=== PATIENT | female | born 1995 | race African-American/Black ===

== ENCOUNTER 2017-02-21 11:53 | Emergency (ER) | payer OTHER, MEDICAID ==
[~2017-02-21] VITALS: Ht 170.2 cm; Wt 49.0 kg
[2017-02-21] MEDS ORDERED: MORPHINE SULFATE 4 MG/ML CPJ (NOT FOR IM USE) IV STA (12:22)
[2017-02-21] MEDS ORDERED: ONDANSETRON HCL 4MG/2ML VIAL IV STA (12:22)
[2017-02-21] MEDS ORDERED: SODIUM CHLORIDE 0.9% 1,000 ML IV ONE (12:22)
[2017-02-21 12:46] LABS: BASOPHILS % 0.4 % (0.0-2.0); EOSINOPHILS % 0.7 % (0.0-5.0); HEMATOCRIT. 40.3 % (36.0-48.0); HEMOGLOBIN. 13.3 g/dL (12.0-16.0); LYMPHOCYTES % 16.9 % (20.0-50.0); MEAN CORPUSCULAR HEMOGLOBIN 26.9 pg (28.0-32.0); MEAN CORPUSCULAR HGB CONC 32.9 g/dL (31.0-37.0); MEAN CORPUSCULAR VOLUME 81.8 fL (81.0-99.0); MEAN PLATELET VOLUME 6.9 fl (7.4-10.4); MONOCYTES % 11.8 % (2.0-8.0); NEUTROPHILS % 70.2 % (40.0-76.0); PLATELET 329 x1000/uL (130-400); RED BLOOD CELL COUNT 4.93 mill/uL (4.2-5.4); RED CELL DISTRIBUTION WIDTH 14.3 % (11.6-14.6); WHITE BLOOD COUNT 8.4 x1000/uL (4.5-11.0)
[2017-02-21 12:50] LABS: CHLORIDE 106 mEq/L (98-107); INDEX HEMOLYSI 1 (1-3); INDEX ICTERIC 1 (1-4); INDEX LIPEMIC 1 (1-3)
[2017-02-21 12:58] LABS: ALANINE AMINOTRANSFERASE 21 IU/L (13-61); ALBUMIN 3.6 g/dL (3.4-5.0); ANION GAP 10; CARBON DIOXIDE 29 mEq/L (21-32); LIPASE 129 IU/L (73-393); UREA NITROGEN BLOOD 16 mg/dL (7-21); eGFR > 60 mL/min (>60)
[2017-02-21 13:03] LABS: HCG SCREEN NEGATIVE
[2017-02-21 13:17] LABS: CLARITY URINE CLOUDY (CLEAR); COLOR URINE DARK YELLOW (YELLOW); GLUCOSE URINE NEGATIVE (NEGATIVE); KETONES URINE TRACE (NEGATIVE); LEUKOCYTE ESTERASE URINE TRACE (NEGATIVE); NITRITE URINE POSITIVE (NEGATIVE); OCCULT BLOOD URINE NEGATIVE (NEGATIVE); PROTEIN URINE NEGATIVE (NEGATIVE)
[2017-02-21 13:56] LABS: SQUAMOUS EPITHELIAL CELL URINE 1+ /lpf (RARE/1+)
[2017-02-21 13:57] LABS: BACTERIA URINE 4+
[2017-02-21 13:58] LABS: MUCUS URINE 1+ /lpf (< = 2+)
[2017-02-21 14:01] LABS: RBC URINE 0-2 /hpf (0-2); WBC URINE 0-2 /hpf (0-2)
[2017-02-21 16:00] VITALS: BP 111/68
== END 2017-02-21 16:03 | disposition home or self-care (01) ==
LOC: ER 11:53
DX: R10.30 Lower abdominal pain, unspecified (principal); N39.0 Urinary tract infection, site not specified; R11.2 Nausea with vomiting, unspecified; F41.9 Anxiety disorder, unspecified; F17.200 Nicotine dependence, unspecified, uncomplicated; D64.9 Anemia, unspecified; F12.10 Cannabis abuse, uncomplicated
CPT/HCPCS: 36415; 80053; 81001; 83690; 84703; 85025; 96361; 96374; 96375; 99285; J2270; J2405; J7030; Z7610

== ENCOUNTER 2019-10-28 14:33 | Emergency (ER) | payer OTHER, MEDICAID | END 2019-10-28 15:43 | disposition left against medical advice (07) | LOC: ER 14:33 | DX: Z53.21 Procedure and treatment not carried out due to patient leaving prior to being seen by health care provider (principal) ==

== ENCOUNTER 2021-06-14 17:20 | Emergency (ER) | payer MEDICAID, OTHER ==
[~2021-06-14] VITALS: Ht 167.6 cm; Wt 49.0 kg
[2021-06-14] MEDS ORDERED: ACETAMINOPHEN 325MG TABLET PO STA (18:12)
[2021-06-14] MEDS ORDERED: SODIUM CHLORIDE 0.9% 1,000 ML IV ONE ×2 (18:15→20:45)
[2021-06-14 18:45] LABS: HEMATOCRIT. 38.1 % (36.0-48.0); HEMOGLOBIN. 13.2 g/dL (12.0-16.0); MEAN CORPUSCULAR HEMOGLOBIN 26.9 pg (28.0-32.0); MEAN CORPUSCULAR VOLUME 77.7 fL (81.0-99.0); MEAN PLATELET VOLUME 8.1 fl (7.4-10.4); PLATELET 217 x1000/uL (130-400); RED CELL DISTRIBUTION WIDTH 14.2 % (11.6-14.6)
[2021-06-14 18:48] LABS: CLARITY URINE CLOUDY (CLEAR); COLOR URINE YELLOW (YELLOW); KETONES URINE TRACE (NEGATIVE); LEUKOCYTE ESTERASE URINE 2+ (NEGATIVE); NITRITE URINE POSITIVE (NEGATIVE); OCCULT BLOOD URINE 2+ (NEGATIVE); PROTEIN URINE 1+ (NEGATIVE); SPECIFIC GRAVITY URINE 1.024 (1.005-1.030)
[2021-06-14 18:51] LABS: CHLORIDE 100 mEq/L (98-107)
[2021-06-14 19:16] LABS: PLATELET ESTIMATE NORMAL
[2021-06-14] MEDS ORDERED: CEFTRIAXONE 1 G PREMIX 50 ML IV ONE (20:45)
[2021-06-14] MEDS ORDERED: AMOX-424 MT (23:52)
[2021-06-14] MEDS ORDERED: IBUP-2029 MT (23:57)
[2021-06-15 00:14] VITALS: BP 139/80
[2021-06-15] MEDS ORDERED: ACETAMINOPHEN 325MG TABLET PO ONE (00:30)
== END 2021-06-15 00:30 | disposition home or self-care (01) ==
LOC: ER 17:20
DX: U07.1 COVID-19 (principal); N30.00 Acute cystitis without hematuria; F12.10 Cannabis abuse, uncomplicated
CPT/HCPCS: 36415; 71045; 80053; 81003; 81025; 84443; 85025; 93005; 96365; 99285; C9803; J0696; J7030; U0003; U0005

== ENCOUNTER 2021-06-19 16:45 | Inpatient (IN) | payer MEDICAID ==
[~2021-06-19] VITALS: Ht 170.2 cm; Wt 47.6 kg
[~2021-06-19 16:45] MED LIST: AMOX-424 MT; IBUP-2029 MT
[2021-06-19] MEDS ORDERED: ACETAMINOPHEN 325MG TABLET PO STA (17:48)
[2021-06-19] MEDS ORDERED: LORAZEPAM 2MG/ML CPJ IV ONE (18:00)
[2021-06-19] MEDS ORDERED: SODIUM CHLORIDE 0.9% 1000ML BAG (SEPSIS BOLUS) IV ONE (18:00)
[2021-06-19] MEDS ORDERED: PIPERACILLIN/TAZ 3.375G PREMIX 50 ML IV ONE (18:00)
[2021-06-19] MEDS ORDERED: VANCOMYCIN 1 G PREMIX 200 ML IV ONE (18:00)
[2021-06-19 18:36] LABS: HEMATOCRIT. 43.2 % (36.0-48.0); HEMOGLOBIN. 14.2 g/dL (12.0-16.0); MEAN CORPUSCULAR HEMOGLOBIN 25.8 pg (28.0-32.0); MEAN CORPUSCULAR VOLUME 78.3 fL (81.0-99.0); MEAN PLATELET VOLUME 10.9 fl (7.4-10.4); PLATELET 141 x1000/uL (130-400); RED BLOOD CELL COUNT 5.52 mill/uL (4.2-5.4); RED CELL DISTRIBUTION WIDTH 14.7 % (11.6-14.6)
[2021-06-19 18:41] LABS: CHLORIDE 95 mEq/L (98-107)
[2021-06-19 19:33] LABS: PLATELET ESTIMATE NORMAL
[2021-06-19] MEDS: HYDROCORTISONE SOD SUCCINATE 100 MG/2 ML VIAL IV SCH (22:00)
[2021-06-19 22:04] LABS: CLARITY URINE CLEAR (CLEAR); COLOR URINE YELLOW (YELLOW); KETONES URINE NEGATIVE (NEGATIVE); LEUKOCYTE ESTERASE URINE NEGATIVE (NEGATIVE); NITRITE URINE NEGATIVE (NEGATIVE); OCCULT BLOOD URINE 2+ (NEGATIVE); PH URINE 5.5 (4.5-8.0); PROTEIN URINE 1+ (NEGATIVE)
[2021-06-19] MEDS ORDERED: SODIUM CHLORIDE 0.9% 1,000 ML IV ONE (22:45)
[2021-06-19] MEDS ORDERED: DOCUSATE SODIUM 100MG CAPSULE PO PRN (23:45)
[2021-06-19] MEDS ORDERED: LORAZEPAM 2MG/ML CPJ IV PRN (23:45)
[2021-06-19] MEDS ORDERED: DIPHENHYDRAMINE 50MG/ML VIAL IV PRN (23:45)
[2021-06-19] MEDS ORDERED: GUAIFENESIN 200MG/10ML SUGAR FREE UDC PO PRN (23:45)
[2021-06-19] MEDS ORDERED: IPRATROPIUM/ALBUTEROL 0.5-3(2.5)MG/3ML NEB HHN PRN (23:45)
[2021-06-19] MEDS ORDERED: CLONIDINE 0.1MG TABLET PO PRN (23:45)
[2021-06-19] MEDS ORDERED: ACETAMINOPHEN 650MG SUPP PR PRN ×2 (23:45)
[2021-06-19] MEDS ORDERED: MAGNESIUM/ALUMINUM HYDROXIDE/SIMETHICONE 30ML UDC PO PRN (23:45)
[2021-06-19] MEDS ORDERED: ONDANSETRON HCL 4MG/2ML INJ IV PRN (23:45)
[2021-06-19] MEDS ORDERED: ACETAMINOPHEN 325MG TABLET PO PRN ×2 (23:45)
[2021-06-19] MEDS ORDERED: MORPHINE SULFATE 2 MG/ML CPJ (NOT FOR IM USE) IV PRN (23:45)
[2021-06-20] MEDS: LACTATED RINGERS 1,000 ML IV SCH ×3 (01:29→21:42)
[2021-06-20] MEDS ORDERED: NOREPINEPHRINE 8MG/250ML PMX 250 ML IV PRN (02:00)
[2021-06-20 05:17] LABS: BASOPHILS % 0.3 % (0.0-2.0); EOSINOPHILS % 0.1 % (0.0-5.0); HEMATOCRIT. 33.8 % (36.0-48.0); HEMOGLOBIN. 11.3 g/dL (12.0-16.0); LYMPHOCYTES % 18.2 % (20.0-50.0); MEAN CORPUSCULAR HEMOGLOBIN 26.1 pg (28.0-32.0); MEAN CORPUSCULAR VOLUME 77.7 fL (81.0-99.0); MONOCYTES % 8.2 % (2.0-8.0); NEUTROPHILS % 73.2 % (40.0-76.0); PLATELET 140 x1000/uL (130-400); RED BLOOD CELL COUNT 4.35 mill/uL (4.2-5.4); RED CELL DISTRIBUTION WIDTH 14.7 % (11.6-14.6)
[2021-06-20 05:25] LABS: CHLORIDE 108 mEq/L (98-107)
[2021-06-20 05:34] LABS: LDL CHOLESTEROL 26 mg/dL (5-100)
[2021-06-20 05:35] LABS: T4 FREE 1.95 ng/dL (0.76-1.46)
[2021-06-20 05:36] LABS: CREATINE KINASE 575 IU/L (26-192); HDL CHOLESTEROL 9 mg/dL (40-59)
[2021-06-20] MEDS: HYDROCORTISONE SOD SUCCINATE 100 MG/2 ML VIAL IV SCH ×3 (06:27→21:42)
[2021-06-20] MEDS: ENOXAPARIN 30MG/0.3ML SYR SUBCUT SCH (10:51)
[2021-06-20] MEDS ORDERED: CEFTRIAXONE 1 G PREMIX 50 ML IV SCH (11:30)
[2021-06-20] MEDS: CEFTRIAXONE 1,000 MG in DEXTROSE 5% WATER 50 ML IV SCH (13:03)
[2021-06-20] MEDS: METHIMAZOLE 5MG TABLET PO SCH ×2 (13:18→17:23)
[2021-06-20] MEDS: MIDODRINE HCL 5MG TABLET PO SCH ×2 (13:18→17:00)
[2021-06-20 16:00] VITALS: BP 150/84
[2021-06-20 16:30] VITALS: BP 150/84
[2021-06-20 20:00] VITALS: BP 106/59
[2021-06-21] VITALS: BP 114/70
[2021-06-21 01:04] LABS: *BARBITURATES SCREEN URINE NEGATIVE (NEGATIVE); *BENZODIAZEPINES SCREEN URINE NEGATIVE (NEGATIVE); *COCAINE SCREEN URINE NEGATIVE (NEGATIVE)
[2021-06-21 01:05] LABS: CANNABINOID URINE SCREEN NEGATIVE (NEGATIVE); METHADONE URINE SCREEN NEGATIVE (NEGATIVE); PHENCYCLIDINE URINE SCREEN NEGATIVE (NEGATIVE)
[2021-06-21 01:20] LABS: *AMPHETAMINES SCREEN URINE PRESUMTIVE POSITIVE (NEGATIVE); OPIATES URINE SCREEN PRESUMTIVE POSITIVE (NEGATIVE)
[2021-06-21 04:00] VITALS: BP 102/48
[2021-06-21] MEDS: HYDROCORTISONE SOD SUCCINATE 100 MG/2 ML VIAL IV SCH ×3 (06:22→21:00)
[2021-06-21 08:03] VITALS: BP 108/54
[2021-06-21] MEDS: ENOXAPARIN 30MG/0.3ML SYR SUBCUT SCH (09:00)
[2021-06-21] MEDS ORDERED: TAP5 MT (09:08)
[2021-06-21] MEDS ORDERED: LEVO500T89 MT (09:08)
[2021-06-21] MEDS: MIDODRINE HCL 5MG TABLET PO SCH ×3 (09:40→16:17)
[2021-06-21] MEDS: METHIMAZOLE 5MG TABLET PO SCH ×3 (09:40→16:17)
[2021-06-21 12:00] VITALS: BP 99/53
[2021-06-21] MEDS: CEFTRIAXONE 1,000 MG in DEXTROSE 5% WATER 50 ML IV SCH (14:03)
[2021-06-21 16:00] VITALS: BP 104/56
[2021-06-21] MEDS: LACTATED RINGERS 1,000 ML IV SCH ×2 (16:17→21:00)
[2021-06-21 20:00] VITALS: BP 121/75
[2021-06-22 00:05] VITALS: BP 123/73
[2021-06-22 04:00] VITALS: BP 120/75
[2021-06-22] MEDS: HYDROCORTISONE SOD SUCCINATE 100 MG/2 ML VIAL IV SCH ×3 (05:01→21:07)
[2021-06-22 08:00] VITALS: BP 108/54
[2021-06-22] MEDS: METHIMAZOLE 5MG TABLET PO SCH ×3 (08:17→16:07)
[2021-06-22] MEDS: MIDODRINE HCL 5MG TABLET PO SCH ×3 (08:17→16:07)
[2021-06-22] MEDS: ENOXAPARIN 30MG/0.3ML SYR SUBCUT SCH (08:17)
[2021-06-22 12:00] VITALS: BP 93/68
[2021-06-22] MEDS: LACTATED RINGERS 1,000 ML IV SCH (12:58)
[2021-06-22] MEDS: CEFTRIAXONE 1,000 MG in DEXTROSE 5% WATER 50 ML IV SCH (12:58)
[2021-06-22 16:00] VITALS: BP 119/79
[2021-06-22 20:00] VITALS: BP 126/70
[2021-06-23] VITALS: BP 106/46
[2021-06-23 04:00] VITALS: BP 99/49
[2021-06-23] MEDS: LACTATED RINGERS 1,000 ML IV SCH ×2 (04:33→08:36)
[2021-06-23] MEDS: HYDROCORTISONE SOD SUCCINATE 100 MG/2 ML VIAL IV SCH ×2 (05:27→13:01)
[2021-06-23 08:00] VITALS: BP 112/72
[2021-06-23] MEDS: ENOXAPARIN 30MG/0.3ML SYR SUBCUT SCH (08:25)
[2021-06-23] MEDS: MIDODRINE HCL 5MG TABLET PO SCH ×2 (08:26→12:57)
[2021-06-23] MEDS: METHIMAZOLE 5MG TABLET PO SCH ×2 (08:26→12:56)
[2021-06-23] MEDS: CEFTRIAXONE 1,000 MG in DEXTROSE 5% WATER 50 ML IV SCH (11:15)
[2021-06-23 12:00] VITALS: BP 114/50
== END 2021-06-23 14:32 | disposition left against medical advice (07) | DRG 720 ==
LOC: ER 16:45 → MICUSO 22:41 → EDBEDREQTM 22:46 → EDBEDREQ 22:46 → EDBEDREQSVC 22:46 → 6WST 06-20 14:08 → 7WST 06-21 10:48
PROVIDERS: ADMIT Family Medicine Adult Medicine; ATTEND Family Medicine Adult Medicine
DX: A41.89 Other specified sepsis (principal); N17.0 Acute kidney failure with tubular necrosis; U07.1 COVID-19; E87.2 Acidosis; E87.1 Hypo-osmolality and hyponatremia; D64.9 Anemia, unspecified; E03.9 Hypothyroidism, unspecified; E87.6 Hypokalemia; E87.8 Other disorders of electrolyte and fluid balance, not elsewhere classified; F15.90 Other stimulant use, unspecified, uncomplicated; F17.210 Nicotine dependence, cigarettes, uncomplicated; F41.9 Anxiety disorder, unspecified; E05.90 Thyrotoxicosis, unspecified without thyrotoxic crisis or storm; N30.90 Cystitis, unspecified without hematuria; R74.01 Elevation of levels of liver transaminase levels; Z59.0 Homelessness; Z71.51 Drug abuse counseling and surveillance of drug abuser
CPT/HCPCS: 36415; 71045; 80053; 80061; 80305; 81003; 82533; 82550; 83605; 84439; 84443; 84481; 84484; 85025; 87426; 93005; 99291; J0696; J1650; J1720; J2060; J2543; J3370; J7030; J7060; U0003; U0005

== ENCOUNTER 2022-03-23 06:40 | Emergency (ER) | payer MEDICAID ==
[~2022-03-23] VITALS: Ht 170.2 cm; Wt 49.9 kg
[~2022-03-23 06:40] MED LIST changes: +LEVO500T89 MT; +TAP5 MT
[2022-03-23 06:57] VITALS: BP 123/84
== END 2022-03-23 18:53 | disposition left against medical advice (07) ==
LOC: ER 06:40
DX: Z53.21 Procedure and treatment not carried out due to patient leaving prior to being seen by health care provider (principal)

== ENCOUNTER 2023-04-24 20:38 | Emergency (ER) | payer MEDICAID ==
[~2023-04-24] VITALS: Ht 170.2 cm; Wt 50.0 kg
[~2023-04-24 20:38] MED LIST changes: +LEVO-65 MT; -LEVO500T89 MT; +METH-371 MT; -TAP5 MT
[2023-04-24 21:03] VITALS: BP 126/77; O2SAT 100
[2023-04-24 23:29] VITALS: PULSE 86; RESP 18; TEMP 98.9
== END 2023-04-24 23:46 | disposition home or self-care (01) ==
LOC: ER 20:38
DX: R22.32 Localized swelling, mass and lump, left upper limb (principal); D64.9 Anemia, unspecified; F41.9 Anxiety disorder, unspecified; F15.10 Other stimulant abuse, uncomplicated
CPT/HCPCS: 99281

== ENCOUNTER 2024-03-05 17:25 | Emergency (ER) | payer MEDICAID ==
[~2024-03-05] VITALS: Ht 160 cm; Wt 45.0 kg
[2024-03-05 17:38] VITALS: BP 135/80; TEMP 98.3; O2SAT 100
[2024-03-05] MEDS ORDERED: BACITRACIN ZINC OINT UDPKT TOP ONE (19:45)
[2024-03-05] MEDS ORDERED: LIDOCAINE HCL/PF 1% 10 MG/ML 5ML VIAL INFIL ONE (19:45)
[2024-03-05] MEDS ORDERED: IBUP-2437 MT (20:02)
[2024-03-05 21:04] VITALS: PULSE 88; RESP 17
== END 2024-03-05 21:11 | disposition home or self-care (01) ==
LOC: ER 17:25
DX: D17.9 Benign lipomatous neoplasm, unspecified (principal); D64.9 Anemia, unspecified; F41.9 Anxiety disorder, unspecified; F15.10 Other stimulant abuse, uncomplicated
CPT/HCPCS: 99281; J3490